=== PATIENT | male | born 1990 | race Caucasian/White ===

== ENCOUNTER 2018-04-28 12:21 | Emergency (ER) | payer OTHER ==
[~2018-04-28] VITALS: Ht 175.3 cm; Wt 104.3 kg
[2018-04-28] MEDS ORDERED: CLINDAMYCIN PHOS 600 MG/ 4 ML VIAL IM ONE (13:15)
[2018-04-28 14:47] VITALS: BP 142/90
== END 2018-04-28 14:56 | disposition home or self-care (01) ==
LOC: ER 12:21
DX: L02.31 Cutaneous abscess of buttock (principal)
CPT/HCPCS: 99282